=== PATIENT | male | born 1970 | race Caucasian/White ===

== ENCOUNTER 2022-12-23 10:54 | Outpatient (OUT) | payer OTHER, SELFPAY ==
[2022-12-23 11:32] LABS: Basophils Absolute Auto 0.1 10^3/uL (0.0-0.1); Basophils Percent Auto 0.8 % (0.2-2.0); Eosinophils Absolute Auto 0.1 10^3/uL (0.0-0.7); Eosinophils Percent Auto 1.4 % (0.9-7.0); Hematocrit 42.2 % (42.0-54.0); Hemoglobin 14.4 g/dL (14.0-18.0); Immature Granulocytes Abs Auto 0.02 10^3/uL (0.00-0.03); Immature Granulocytes Pct Auto 0.3 % (0.0-0.5); Lymphocytes Percent Auto 25.9 % (20.5-60.0); Mean Corpuscular HGB Conc 34.1 g/dL (29.9-35.2); Mean Corpuscular Hemoglobin 29.9 pg (25.9-34.0); Mean Corpuscular Volume 87.6 fL (80.0-94.0); Mean Platelet Volume 8.7 fL (9.5-13.5); Monocytes Absolute Auto 0.6 10^3/uL (0.3-0.8); Monocytes Percent Auto 8.4 % (1.7-12.0); Neutrophils Absolute Auto 4.8 10^3/uL (1.4-6.5); Neutrophils Percent Auto 63.2 % (43.0-75.0); Platelet Count 345 10^3/uL (150-450); Red Blood Count 4.82 10^6/uL (4.70-6.10); Red Cell Distribution Width 12.4 % (11.0-15.0); White Blood Count 7.7 10^3/uL (4.0-11.0)
[2022-12-23 12:11] LABS: Alanine Aminotransferase 28 U/L (16-63); Albumin Globulin Ratio 0.8; Albumin Level 3.7 g/dL (3.4-5.0); Alkaline Phosphatase 85 U/L (46-116); Anion Gap 11.7; Aspartate Amino Transferase 18 U/L (15-37); BUN Creatinine Ratio 13.8; Bilirubin Total 0.4 mg/dL (0.2-1.0); Calcium 9.3 mg/dL (8.5-10.1); Carbon Dioxide 29.2 mmol/L (21.0-32.0); Chloride 102 mmol/L (98-107); Estimated GFR (African America >60 (>=60); Estimated GFR (Non-African Ame >60 (>=60); Globulin 4.4 g/dL; Glucose 124 mg/dL (74-106); Potassium 3.9 mmol/L (3.5-5.1); Sodium 139 mmol/L (136-145); Total Protein 8.1 g/dL (6.4-8.2); Triglycerides 92 mg/dL (<=150); VLDL CHOLESTEROL 18.4 mg/dL
[2022-12-23 12:12] LABS: Chol HDL Ratio 2.7; Cholesterol 113 mg/dL (<=200); HDL Cholesterol 42 mg/dL (40-60)
[2022-12-23 18:08] LABS: Prostate Specific Antigen Scrn 0.58 ng/mL (<=4.00)
== END 2022-12-23 10:55 | disposition home or self-care (01) ==
LOC: LAB 10:57
PROVIDERS: PCP Family Medicine; Visit Provider Family Medicine
DX: Z00.00 Encounter for general adult medical examination without abnormal findings (principal); Z12.5 Encounter for screening for malignant neoplasm of prostate
CPT/HCPCS: 36415; 80053; 80061; 85025; G0103

== ENCOUNTER 2024-07-03 07:33 | Outpatient (OUT) | payer OTHER, SELFPAY ==
--- NOTE | 2024-07-03 | CT_ITS ---
The [address] [address] Patient Name: JIA ARIAS MRN: [id number] date: 1970 Sex: M Assigned Patient Location: CT Current Patient Location: CT Accession/Order Number: [id number] Exam Date: 07/03/2024 07:58 Report Date: 07/05/2024 12:43 At the request of: PAOLA GOMEZ Procedure: CT soft tissue neck wo/w con CT neck with and without contrast, 07/03/2024. HISTORY: Left-sided neck mass. Lump on left side of neck. COMPARISON: None. TECHNIQUE: Pre and postcontrast axial CT images obtained through the neck. Reconstructions obtained in the sagittal and coronal planes. FINDINGS: Visualized intracranial contents unremarkable. There is a mucous retention cyst in the left maxillary sinus measures approximately 2 cm. Middle ear cavities and mastoid air are clear. Skull base is intact. [employer] space musculature normal. Parotid glands are normal. Submandibular glands are normal. There is an enhancing mass at the base of the tongue on the left side extending into the vallecula space. The mass measures 3.0 x 3.1 x 3.3 cm. Nasopharynx unremarkable. The tongue base mass involves the left glossotonsillar sulcus. There may be slight extension beyond the lingual septum to the right of midline posteriorly in the tongue. The lesion protrudes into the vallecula space. The epiglottis appears to be unremarkable. Retropharyngeal spaces normal. Vocal cords are symmetric. No laryngeal mass identified. The thyroid gland is normal. Visualized portion of the trachea and esophagus are normal. There are multiple metastatic lymph nodes at level 2 and level 3 bilaterally. A heterogeneously enhancing level 2 metastatic lesion on the right on axial image 25 measures 1.6 x 2.0 cm. There are a few additional small subcentimeter metastatic lymph nodes at level 2 on the right with unusual enhancement pattern consistent with metastatic disease. A metastatic level 2 lymph node on the left side of the neck on axial image 23 measures 1.4 x 1.6 cm. A metastatic level 2 lymph node on the left side of the neck on axial image 22 with some internal necrosis measures 1.7 x 2.1 cm. A metastatic level 3 lymph node on the left side of the neck on image 33 with internal necrosis measures 1.9 x 2.0 cm. The carotid arteries are normal. Internal jugular veins are patent bilaterally. Lung apices are clear. Cervical spine unremarkable. No suspicious osseous lesions. CT/CT soft tissue neck wo/w con IMPRESSION: 1. Enhancing mass at the base of the tongue on the left side protruding into the vallecula space involving the left glossotonsillar sulcus. The lesion may slightly extend past the midline lingual septum toward the right posteriorly in the tongue. 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 2. 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 Electronically authenticated by: MARIYA BLACKMON Date: 07/05/2024 12:43
== END 2024-07-03 07:34 | disposition home or self-care (01) ==
PROVIDERS: PCP Family Medicine; Visit Provider Family Medicine
DX: R22.1 Localized swelling, mass and lump, neck (principal)
CPT/HCPCS: 70492; Q9967